=== PATIENT | male | born 2000 | race Caucasian/White ===

== ENCOUNTER 2022-07-23 14:09 | Inpatient (IN) ==
[2022-07-23 15:42] LABS: Basophils # (auto) 0.03 K/uL (0-0.2); Basophils % (auto) 0.4 %; Eosinophils # (auto) 0.09 K/uL (0-0.50); Eosinophils % (auto) 1.1 %; Immature Granulocytes # (auto) 0.02 K/uL (0.00-0.02); Immature Granulocytes % (auto) 0.2 %; Lymphocytes # (auto) 1.56 K/uL (1.2-3.4); Lymphocytes % (auto) 19.2 %; Mean Corpuscular Hgb Conc 35.6 g/dL (32.0-36.0); Mean Corpuscular Volume 84.3 fL (80.0-100.0); Mean Platelet Volume 9.5 fL (9.4-12.4); Monocytes # (auto) 0.46 K/uL (0.24-0.82); Monocytes % (auto) 5.7 %; Neutrophils # (auto) 5.96 K/uL (1.4-6.5); Neutrophils % (auto) 73.4 %; Platelet Count 225 K/uL (130-400); RDW Coefficient of Variation 11.8 % (11.5-14.5); RDW Standard Deviation 35.5 fL (36.4-46.3); Red Blood Count 5.34 M/uL (4.63-6.08); White Blood Count 8.12 K/ul (4.8-10.8)
--- NOTE | 2022-07-23 15:49 | Pulmonary Consultation ---
Date of Consultation July 23, 2022 Assessment & Plan (1) Spontaneous pneumothorax: (2) Shortness of breath: (3) Chest tightness: Plan Chest x-ray 07/23/2022 personally reviewed: Left-sided moderate pneumothorax with 4.9 cm apical separation, 1.2 cm left hilar cell separation, mild left- sided mediastinal shift -- Left-sided spontaneous pneumothorax Initial presentation 07/19/2022, was sent home with conservative management Worsening of the left-sided pneumothorax on the recent chest x-ray Plan: Will put a left-sided chest tube Risk and benefit of the procedure explained the patient in depth He understands and agrees to go ahead with the procedure. Consent signed, witnessed and put in the chart CT chest without contrast following that Please note the above document was generated using voice recognition software. It may contain grammatical, syntax or spelling errors.Any formal questions or concerns about the content, text or information contained within the body of this dictation should be directly addressed to the provider for clarification. History of Present Illness History of Present Illness 21-year-old male presents to the hospital from primary care for spontaneous pneumothorax Past medical history: Anxiety At the time of examination patient is comfortable in the room He was not in any distress he did complain of left sided chest tightness Denied any chest pain He was in the ER last Friday and he was sent home with conservative management. He has not lifted anything heavy. He denies any trauma. No headache, no nausea vomiting No history of pneumothoraces in the past Social history: Lifetime non-smoker Allergies Allergy/AdvReac Type Severity Reaction Status Date / Time No Known Allergies Allergy Unverified 07/23/22 07:02 Home Medications Medication Instructions Recorded Confirmed Type No Known Home Medications 07/23/22 07/23/22 History Patient History Medical History No pertinent family history No pertinent past medical history Surgical History No pertinent past surgical history Social History Smoking Status: Never smoker Feels Safe at Home: Yes Review of Systems Review of Systems: All systems reviewed & are unremarkable except as noted in HPI & below Physical Exam Physical Exam: Constitutional: No acute distress HEENT: EOMI, PERRLA Respiratory system: Decreased air entry in the left side, no wheeze, no rhonchi, no crackles CVS: S1-S2 positive, no murmurs or gallops, tachycardia Abdomen: Soft, nontender, nondistended, positive bowel sounds x4 Extremities: +2 pulses bilaterally radialis/ dorsalis pedis, no cyanosis, no edema Neuro: Awake alert oriented x3 Psych: Normal mood and affect G/U: No Rouse Results & Data Results & Data ([facility]) Vital Signs (Past 12 Hours) Vital Signs Temp Pulse Resp BP Pulse Ox O2 Del Method 07/23/22 14:13 36.4 C L 86 20 140/79 97 Room Air Laboratory Results 07/23/22 14:38 07/23/22 14:38 PG Care Time/CCT Total # of Minutes Spent Total Time Spent with Patient: Total time spent is greater than 50% in coordination of care (as documented) at patient's floor/unit and/or counseling patient: Coding Level of Care Code 01212 Initial Inpt Care Lvl 3 Diagnoses Spontaneous pneumothorax J93.83 Shortness of breath R06.02 Chest tightness R07.89
[2022-07-23] MEDS ORDERED: LIDOCAINE 1% LOCAL 20 ML VIAL ONE (16:11)
[2022-07-23] MEDS ORDERED: MIDAZOLAM HCL 1 MG/ML 2ML VIAL ONE ×2 (16:11→16:37)
[2022-07-23] MEDS ORDERED: MoRPHine SULFATE 2 MG/ML CARP ONE ×2 (16:11→17:47)
[2022-07-23 16:13] LABS: Albumin Level 4.7 gm/dl (3.4-5.0); BUN Creatinine Ratio 15.2 (10-20); Bilirubin,Total 1.5 mg/dl (0.2-1.0); Calcium 9.8 mg/dl (8.5-10.1); Creatinine Clr Calc Pharmacy 116.3 ml/min; Est GFR (African American) 138.3 ml/min; Est GFR (Non-African American) 119.3 ml/min; Globulin 2.4 gm/dl (2.5-4.0); Potassium 3.4 mmol/L (3.5-5.1); Total Protein 7.1 gm/dl (6.0-8.3)
--- NOTE | 2022-07-23 17:02 | Procedure Note ---
Procedure Note Date of Service July 23, 2022 Note Procedure: Pigtail chest tube insertion Software Quality Analyst: Dr. Juan Herring Indication: Left-sided pneumothorax Consent: Signed by patient and verified with timeout prior to procedure Anesthesia: 1% lidocaine without epinephrine local Procedure: Consent was verified and timeout performed. Appropriate imaging studies were reviewed prior to the procedure. Patient was placed in a seated position. Appropriate site above the diaphragm on the left midaxillary line fourth intercostal space for chest tube insertion was selected. The skin was prepped and draped in normal sterile fashion. Lidocaine was used for local analgesia. Air was aspirated via the finder needle. A small skin anamika was made with the scalpel and the catheter over the needle apparatus was advanced over the rib into the pleural space. With the help of guidewire and Seldinger technique, 14 Pashto pigtail catheter was inserted and connected to Pleur-evac. Continuous air leak was appreciated on suction for 15 seconds and is stopped. Chest x-ray to follow The patient tolerated the procedure without obvious complication Complications: None Blood loss: Less than 2 cc. Coding CPT Codes Pulmonary/Thoracic - Pulmonary and Thoracic: 26744 Tube thoracostomy ([id number]) [facility] [place]odes ([place]) Pulmonary/Thoracic Procedure 1: Pulmonary and Thoracic: 99985 Tube thoracostomy
[2022-07-23] MEDS ORDERED: ACETAMINOPHEN 1,000 MG/100 ML VIAL IV PRN (17:03)
--- NOTE | 2022-07-23 17:13 | History & Physical Report ---
Date of Service July 23, 2022 Assessment & Plan (1) Spontaneous pneumothorax: Plan: Moderate left apical pneumothorax, spontaneous Seen 07/19 for initial spontaneous pneumo, had interval improvement with nonrebreather of approximately 10% was discharged home. Presented to PCP for evaluation for some runny nose and was found to have decreased breath sounds and expanding On CXR as noted below CXR: Left apical pneumothorax. Increased compared to 07/19 with slight mass- effect along heart border without mediastinal shift. Apical pleural gap 4.9 cm from 3.1 cm. - EKG: nsr, QT 476, nonspecific T wave changes without ST segment changes Pulmonology consulted while in emergency department. Chest tube placed Follow-up CXR confirms placement Patient with significant discomfort, scaled morphine analgesia. No continuous air leak post tube placement Follow on PCU No gross baseline lab derangements on admission; No leukocytosis, hemoglobin is normal, potassium 3.4, renal function is normal at baseline and 0.19 on admission, T bili 1.5 from 2.6, no transaminitis - First episode. No ongoing airleak post chest tube placement. - Post-chest tube XR: FINDINGS: Interval placement left-sided chest tube which terminates in the left midlung zone. Decrease in size in the now small left pneumothorax with a maximal pleural gap of 1.2 cm. Mass effect along the left heart border has resolved. No mediastinal shift. No right-sided pneumothorax. No pleural effusions. The lungs are clear. Continue IV Tylenol, scaled morphine for analgesia Denies other chronic medical issues, underlying lung disease, chronic medications, medication allergies Disposition: PCU for initial monitoring after chest tube DVT prophylaxis: Low risk, SCDs Diet: Regular CODE STATUS: Full code (2) Shortness of breath: (3) Chest tightness: History of Present Illness Primary Care Provider: NO PCP Lele is a 21-year-old male presents for management of a left apical pneumothorax Patient was seen by his primary care provider this morning for follow-up of a spontaneous pneumothorax on 07/19/2022. At that time he presented to the emergency department with the onset of chest pain and was found to have a 3 cm apical pneumothorax, was treated with 100% oxygen nonrebreather with 10% improvement, was discharged home with follow-up. Patient presented for follow- up to his PCP with ear pain and a cough, had a repeat CXR for respiratory symptoms for decreased breath sounds on PE and was found to have a worsened pneumothorax to 4.9 from 3.1 cm left apex. Was referred to the hospital for chest tube management. Initially with some sinus congestions and postnasal drip, at time bedside he reports he does not have a runny nose/cough/sinus congestion/sore throat. No congestion No fevers chills sweats Pain L lateral chest @ tube site. 05/04, slightly improved following Tylenol and morphine. 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 Medical History: Reviewed Medications: Reviewed Surgical History: Reviewed Allergies: Reviewed Social History: No tobaocco or etoh Code Status: Full Code. Allergies Allergy/AdvReac Type Severity Reaction Status Date / Time No Known Allergies Allergy Unverified 07/23/22 07:02 Home Medications Medication Instructions Recorded Confirmed Type No Known Home Medications 07/23/22 07/23/22 History Past Med/Surg History Medical History No pertinent family history No pertinent past medical history Surgical History No pertinent past surgical history Social History Smoking Status: Never smoker Feels Safe at Home: Yes Review of Systems Review of Systems: All systems reviewed & are unremarkable except as noted in HPI & below Physical Exam Physical Exam: General: A&Ox3. NAD. Cooperative. HEENT: Atraumatic, normocephalic. Pulm: CTAB A&P. -wheezes, -rales, -rhonchi. Symmetrical chest rise. No increased work of breathing. No respiratory distress. Cardiac: RRR, -mrg. Radial pulses intact and symmetrical. Abdominal: Nontender, nondistended, soft. BS present. Results & Data Results & Data ([facility]) Vital Signs (Past 12 Hours) Vital Signs Temp Pulse Resp BP Pulse Ox O2 Del Method 07/23/22 14:13 36.4 C L 86 20 140/79 97 Room Air PG Care Time/CCT Total # of Minutes Spent Total Time Spent with Patient: Total time spent is greater than 50% in coordination of care (as documented) at patient's floor/unit and/or counseling patient: Coding Level of Care Code 86269 Initial Inpt Care Lvl 2 Diagnoses Spontaneous pneumothorax J93.83 Shortness of breath R06.02 Chest tightness R07.89
--- NOTE | 2022-07-23 17:22 | XRay Report ---
XR chest 1V portable HISTORY: Left chest tube placement. Follow-up pneumothorax. post thoracentesis COMPARISON: Chest 07/23/2022. FINDINGS: Interval placement left-sided chest tube which terminates in the left midlung zone. Decreas e in size in the now small left pneumothorax with a maximal pleural gap of 1.2 cm. Mass effect along the left heart border has resolved. No mediastinal shift. No right-sided pneumothorax. No pleural eff usions. The lungs are clear. IMPRESSION: Decrease in size in the now small left pneumothorax status post left chest tube placement. ACT 112: Negative or not required by law. Electronically signed by: Tomas Kay M.D. 07/23/2022 5:19 PM
[2022-07-23] MEDS ORDERED: MoRPHine SULFATE 2 MG/ML CARP IV PRN ×2 (17:38→17:49)
--- NOTE | 2022-07-23 19:19 | Emergency Department Note ---
History of Present Illness General Chief complaint: Referred by Doctor Stated complaint: ABNORMAL CHEST XRAY Time Seen by Provider: 07/23/22 15:36 History of Present Illness Provider complaint: Pneumothorax Onset (ago): day(s) 1 Maximum Pain Intensity: 8 Associated symptoms: + cough; no chest pain or no shortness of breath 21-year-old male presents emergency department with pneumothorax. Patient was here over the weekend and was diagnosed with pneumothorax. He was discharged after his pneumothorax improved with oxygen. Patient states he went to his PCP today who repeated the chest x-ray and the chest x-ray looked worse. Patient reports no chest pain or difficulty breathing. His significant other is at [facility] and states they have both been having a cough for the last 2 days. No fevers. Home Medications Medication Instructions Recorded Confirmed Type No Known Home Medications 07/23/22 07/23/22 History Allergies Allergy/AdvReac Type Severity Reaction Status Date / Time No Known Allergies Allergy Unverified 07/23/22 07:02 Past Med/Surg History Medical History No pertinent family history Spontaneous pneumothorax Surgical History No pertinent past surgical history Social History Smoking Status: Never smoker Feels Safe at Home: Yes Review of Systems A total of 10 systems reviewed and were otherwise negative Physical Exam Vital Signs Vital Signs - 24 hr 07/23/22 14:13 07/23/22 18:00 Temperature 36.4 C L Temperature Source Temporal Artery Scan Pulse Rate 86 Pulse Rate [Left Finger] 97 H Pulse Rhythm Regular Pulse Strength Normal Respiratory Rate 20 18 Respiratory Effort / Characteristics Non-Labored Spontaneous Respiratory Depth Normal Respiratory Pattern Regular Blood Pressure 140/79 Blood Pressure [Left Arm] 129/82 Blood Pressure Mean 99 Blood Pressure Mean [Left Arm] 97 Blood Pressure Position Sitting Blood Pressure Position [Left Arm] Sitting Pulse Oximetry 97 99 Oxygen Delivery Method Room Air Sepsis Recent Fever Within 48 Hours No Sepsis New/Unexplained Change in Mental Status N/A Sepsis Action Taken by Nursing No Action Required Physical Exam GENERAL: He is oriented to person, place, and time. He appears well-developed and well-nourished. He does not appear distressed. HENT: Exam performed. - Head: Normocephalic and atraumatic. - Right Ear: External ear normal. No mastoid tenderness. - Left Ear: External ear normal. No mastoid tenderness. - Mouth/Throat: The oropharynx is clear and moist. No trismus in the jaw. No dental abscesses or uvula swelling. No oropharyngeal exudate or tonsillar abscesses. EYES: Conjunctivae and EOM are normal. Pupils are equal, round, and reactive to light. Right eye exhibits no discharge. Left eye exhibits no discharge. No scleral icterus. NECK: Normal range of motion. Neck supple. No JVD present. No spinous process tenderness present. No carotid bruit present. No rigidity. No tracheal deviation and normal range of motion present. No Brudzinski's sign and no Kernig's sign noted. CV: Normal rate, regular rhythm, normal heart sounds and intact distal pulses. There is no peripheral edema. Palpable radial pulses bue. PULM/CHEST: Effort normal and breath sounds normal. No respiratory distress. No stridor. He has no wheezes. He has no rales. - Chest Wall: He exhibits no tenderness. ABD: The abdomen is soft. Bowel sounds are normal. He has no distension. No mass is present. There is no tenderness. There is no rebound, no guarding, no Villarreal's sign and no tenderness at McBurney's point. Rovsig negative. MUSC/SKEL: Normal range of motion. There is no peripheral edema, tenderness or deformity. LYMPH: No cervical adenopathy. NEURO: He is alert and oriented to person, place, and time. He has normal strength. No cranial nerve deficit or sensory deficit. Coordination and gait normal. GCS eye subscore is 4. GCS verbal subscore is 5. GCS motor subscore is 6. Cerebellar tests wnl. SKIN: Skin is warm and dry. He is not diaphoretic. PSYCH: He has a normal mood and affect. Behavior is normal. Judgment and thought content normal. Course Course 1535: The patient was evaluated in room B10. A complete history and physical exam was performed Administered Medications Acetaminophen (Ofirmev) 1,000 mg in 100 mls @ 400 mls/hr IV Q8H PRN PRN Reason: Pain Stop: 07/26/22 17:02 Last Infusion: 07/23/22 18:10 Dose: 0 mls/hr Documented By: [id number] Admin: 07/23/22 17:51 Dose: 400 mls/hr Documented By: ISIDRA Morphine Sulfate (Morphine Sulfate 2 Mg/Ml Carp) 2 mg IV Q4H PRN PRN Reason: Severe Pain (7,8,9,10) on NRS Stop: 08/06/22 17:48 Last Admin: 07/23/22 18:51 Dose: 2 mg Documented By: [id number] Discontinued Medications Lidocaine HCl (Lidocaine 1% Local 20 Ml Vial) Confirm Administered Dose 20 ml .ROUTE .STK-MED ONE Stop: 07/23/22 16:12 Last Admin: 07/23/22 17:13 Dose: 20 ml Documented By: [id number] Midazolam HCl (Midazolam Hcl 1 Mg/Ml 2ml Vial) Confirm Administered Dose 4 mg .ROUTE .STK-MED ONE Stop: 07/23/22 16:12 Last Increment: 07/23/22 17:13 Dose: 3 mg Documented By: [id number] Midazolam HCl (Midazolam Hcl 1 Mg/Ml 2ml Vial) Confirm Administered Dose 2 mg .ROUTE .STK-MED ONE Stop: 07/23/22 16:38 Last Admin: 07/23/22 18:13 Dose: Not Given Documented By: [id number] Morphine Sulfate (Morphine Sulfate 2 Mg/Ml Carp) Confirm Administered Dose 2 mg .ROUTE .STK-MED ONE Stop: 07/23/22 16:12 Last Admin: 07/23/22 17:13 Dose: 2 mg Documented By: [id number] Morphine Sulfate (Morphine Sulfate 2 Mg/Ml Carp) Confirm Administered Dose 2 mg .ROUTE .STK-MED ONE Stop: 07/23/22 17:48 Last Admin: 07/23/22 17:51 Dose: 2 mg Documented By: ISIDRA Medical Decision Making Laboratory Data Result diagrams: 07/23/22 14:38 07/23/22 14:38 Lab Results 07/23/22 07/23/22 Range/Units 14:38 14:38 WBC 8.12 (4.8-10.8) K/ul RBC 5.34 (4.63-6.08) M/uL Hgb 16.0 (14.0-18.0) g/dl Hct 45.0 (40.1-51.0) % MCV 84.3 (80.0-100.0) fL MCH 30.0 (25.0-34.0) pg MCHC 35.6 (32.0-36.0) g/dL RDW Std Deviation 35.5 L (36.4-46.3) fL RDW Coeff of Jarett 11.8 (11.5-14.5) % Plt Count 225 (130-400) K/uL MPV 9.5 (9.4-12.4) fL Immature Gran % (Auto) 0.2 % Neut % (Auto) 73.4 % Lymph % (Auto) 19.2 % [place] % (Auto) 5.7 % Eos % (Auto) 1.1 % Baso % (Auto) 0.4 % Neut # (Auto) 5.96 (1.4-6.5) K/uL Lymph # (Auto) 1.56 (1.2-3.4) K/uL [place] # (Auto) 0.46 (0.24-0.82) K/uL Eos # (Auto) 0.09 (0-0.50) K/uL Baso # (Auto) 0.03 (0-0.2) K/uL Immature Gran # (Auto) 0.02 (0.00-0.02) K/uL Sodium 142 (136-145) mmol/L Potassium 3.4 L (3.5-5.1) mmol/L Chloride 106 (98-107) mmol/L Carbon Dioxide 29 (21-32) mmol/L Anion Gap 7 (3-11) BUN 14 (6-23) mg/dl Creatinine 0.92 (0.6-1.4) mg/dl Est Cr Clr Drug Dosing 116.3 ml/min Est GFR ( Amer) 138.3 ml/min Est GFR (Non-Af Amer) 119.3 ml/min BUN/Creatinine Ratio 15.2 (10-20) Glucose 121 H (70-99(Fasting)) mg/dl Calcium 9.8 (8.5-10.1) mg/dl Total Bilirubin 1.5 H (0.2-1.0) mg/dl AST 10 L (13-39) U/L ALT 13 (7-52) U/L Alkaline Phosphatase 58 (34-104) U/L Total Protein 7.1 (6.0-8.3) gm/dl Albumin 4.7 (3.4-5.0) gm/dl Globulin 2.4 L (2.5-4.0) gm/dl Albumin/Globulin Ratio 2.0 (0.9-2) Imaging Data Radiologist's Impression: Chest X-Ray 07/23/22 16:51 XR chest 1V portable HISTORY: Left chest tube placement. Follow-up pneumothorax. post thoracentesis COMPARISON: Chest 07/23/2022. FINDINGS: Interval placement left-sided chest tube which terminates in the left midlung zone. Decrease in size in the now small left pneumothorax with a maximal pleural gap of 1.2 cm. Mass effect along the left heart border has resolved. No mediastinal shift. No right-sided pneumothorax. No pleural effusions. The lungs are clear. IMPRESSION: Decrease in size in the now small left pneumothorax status post left chest tube placement. ACT 112: Negative or not required by law. Electronically signed by: Tomas Kay M.D. 07/23/2022 5:19 PM MDM Narrative Cardiac monitoring: An order was placed for continuous cardiac monitoring. The monitor shows a rate of 90 with sinus rhythm EMR reviewed. Patient was seen over the weekend and was seen for spontaneous pneumothorax which did improved with oxygen via the nonrebreather. Patient had an x-ray done outpatient today which showed increased size of the left-sided pneumothorax. X-ray does report possibility of tension developing. Clinically the patient has absolutely zero signs of tension pneumothorax. There is no JVD, he is not reporting chest pain, breath sounds are present, there is no hypotension. Discussed the case with pulmonology on-call Dr. Herring who graciously agreed to come and evaluate the patient and kindly placed a pigtail catheter in the patient. See his procedure note. [facility] the patient Impression & Plan Pneumothorax Discharge Plan Visit Data Chief Complaint: Referred by Doctor Stated Complaint: ABNORMAL CHEST XRAY ED Provider: Zhou Salas Discharge Problem: Pneumothorax Patient Disposition: Admitted As Inpatient Forms Stand Alone Forms: My [facility] Prescriptions Prescriptions: No Action No Known Home Medications Referrals Referrals: PCP,NO [Primary Care Provider] -
[2022-07-23 19:31] LABS: Appearance Urine Clear (Clear); Bilirubin Urine Negative (Negative); Blood Urine Negative (Negative); Color Urine Yellow; Glucose Urine UA Negative (Negative); Ketones Urine Trace (Negative); Leukocyte Esterase Urine Negative (Negative); Nitrite Urine Negative (Negative); Protein Urine Negative (Negative); Specific Gravity Urine 1.018 (1.000-1.030); Urobilinogen Urine Negative (Negative); pH Urine 6.5 (4.5-7.5)
--- NOTE | 2022-07-23 19:38 | Electrocardiogram Report ---
Test Reason : Blood Pressure : / mmHG Vent. Rate : 087 BPM Atrial Rate : 087 BPM P-R Int : 142 ms QRS Dur : 088 ms QT Int : 396 ms P-R-T Axes : 072 082 046 degrees QTc Int : 476 ms Normal sinus rhythm Nonspecific T wave abnormality Prolonged QT Abnormal ECG When compared with ECG of 19-JUL-2022 09:37, Nonspecific T wave abnormality, worse in Inferior leads Nonspecific T wave abnormality now evident in Anterolateral leads Confirmed by Shen Parks ([id number]) on 07/23/2022 7:38:29 PM Referred By: Confirmed By:Lencho Parks
[2022-07-23] MEDS ORDERED: ACETAMINOPHEN 325 MG TAB PO PRN (20:06)
[2022-07-23] MEDS ORDERED: ONDANSETRON INJ 2 MG/ML 2 ML VIAL IV STA (20:27)
[2022-07-23] MEDS ORDERED: ONDANSETRON INJ 2 MG/ML 2 ML VIAL ONE (20:30)
[2022-07-23] MEDS ORDERED: HYDROmorphone INJ 0.5 MG/0.5 ML SYR IV STA (23:28)
--- NOTE | 2022-07-24 04:01 | Communication Note ---
Date of Service: July 24, 2022 Was in frequent contact with patient's RN throughout the night due to patient's persistent pain. While the morphine doses (1, 2mg) helped somewhat, they made him very nauseous and uneasy. Responded to Zofran. Did trial a one-time dose of Dilaudid 0.5mg with better response and without nausea - was able to get to sleep shortly thereafter. Given this, will change pain scale medications from Morphine -> Dilaudid 0.25mg (pain 4,5,6) and Dilaudid 0.5mg (pain 7+). Monitor. Resident Activity Tracking Resident Involvement: Resident Care Provided Care Provided: Adult Hospital Medicine
[2022-07-24] MEDS: HYDROmorphone INJ 0.5 MG/0.5 ML SYR IV PRN ×4 (04:05→16:48)
[2022-07-24 06:56] LABS: Basophils # (auto) 0.03 K/uL (0-0.2); Basophils % (auto) 0.3 %; Eosinophils # (auto) 0.04 K/uL (0-0.50); Eosinophils % (auto) 0.4 %; Hemoglobin 15.2 g/dl (14.0-18.0); Immature Granulocytes # (auto) 0.02 K/uL (0.00-0.02); Immature Granulocytes % (auto) 0.2 %; Lymphocytes # (auto) 1.18 K/uL (1.2-3.4); Lymphocytes % (auto) 13.3 %; Mean Corpuscular Hemoglobin 30.3 pg (25.0-34.0); Mean Corpuscular Hgb Conc 35.3 g/dL (32.0-36.0); Mean Corpuscular Volume 85.7 fL (80.0-100.0); Mean Platelet Volume 9.2 fL (9.4-12.4); Monocytes # (auto) 0.61 K/uL (0.24-0.82); Monocytes % (auto) 6.9 %; Neutrophils # (auto) 7.01 K/uL (1.4-6.5); Neutrophils % (auto) 78.9 %; Platelet Count 210 K/uL (130-400); RDW Coefficient of Variation 11.6 % (11.5-14.5); Red Blood Count 5.02 M/uL (4.63-6.08); White Blood Count 8.89 K/ul (4.8-10.8)
--- NOTE | 2022-07-24 07:31 | Pulmonology Progress Note ---
Date of Service July 24, 2022 Assessment & Plan (1) Spontaneous pneumothorax: (2) Shortness of breath: (3) Chest tightness: Plan Chest x-ray 07/23/2022 personally reviewed: Left-sided moderate pneumothorax with 4.9 cm apical separation, 1.2 cm left hilar cell separation, mild left- sided mediastinal shift CT chest 07/24/2022 personally reviewed: Bilateral apical blebs appreciated, small left-sided pneumothorax No mediastinal lymphadenopathy -- Left-sided spontaneous pneumothorax Initial presentation 07/19/2022, was sent home with conservative management Worsening of the left-sided pneumothorax on the recent chest x-ray S/p pigtail catheter 07/23/2022 Plan: I put the patient on suction -20. Initial bubbling was appreciated with lasted for less than 3 seconds. Will repeat chest x-ray tomorrow. Continue with pain management All question inquiries of the patient's family as well as patient were answered in depth Please note the above document was generated using voice recognition software. It may contain grammatical, syntax or spelling errors.Any formal questions or concerns about the content, text or information contained within the body of this dictation should be directly addressed to the provider for clarification. Admission and Anticipated Discharge Date Admission Date: July 23, 2022 Subjective Patient seen and examined at bedside. No acute distress, no adverse events overnight. Chest pain is better controlled. He has been getting pain medication as needed Denies any nausea vomiting No headache, no blurry vision Fair appetite Patient family was also at bedside at the time of examination Review of Systems Review of Systems: All systems reviewed & are unremarkable except as noted in Subjective Physical Exam Physical Exam: Constitutional: No acute distress HEENT: EOMI, PERRLA Respiratory system: Decreased air entry in the left side, no wheeze, no rhonchi, no crackles CVS: S1-S2 positive, no murmurs or gallops Abdomen: Soft, nontender, nondistended, positive bowel sounds x4 Extremities: +2 pulses bilaterally radialis/ dorsalis pedis, no cyanosis, no edema Neuro: Awake alert oriented x3 Psych: Normal mood and affect G/U: No Rouse Skin: no rashes, warm and dry Lymphatic: no cervical or axillary lymphadenopathy Results & Data Results & Data ([facility] [place]) Vital Signs (Past 12 Hours) Vital Signs Temp Pulse Pulse Resp BP BP Pulse Ox 07/24/22 07:14 36.7 C 93 H 20 132/78 98 07/24/22 03:24 36.9 C 100 H 18 132/75 97 07/23/22 22:18 72 07/23/22 20:07 104 H 07/23/22 23:05 36.8 C 103 H 18 139/78 98 07/23/22 20:06 36.9 C 103 H 18 150/78 H 99 07/23/22 20:06 07/23/22 20:00 07/23/22 20:00 36.9 C 103 H 18 150/78 H 99 Pulse Ox O2 Del Method O2 Del Method 07/24/22 07:14 Room Air 07/24/22 03:24 Room Air 07/23/22 22:18 07/23/22 20:07 07/23/22 23:05 Room Air 07/23/22 20:06 Room Air 07/23/22 20:06 99 Room Air 07/23/22 20:00 Room Air 07/23/22 20:00 Room Air Laboratory Results 07/24/22 06:29 PG Care Time/CCT Total # of Minutes Spent Total Time Spent with Patient: Total time spent is greater than 50% in coordination of care (as documented) at patient's floor/unit and/or counseling patient: Coding Level of Care Code 51242 Subseq Hosp Care Lvl 2 Diagnoses Spontaneous pneumothorax J93.83 Shortness of breath R06.02 Chest tightness R07.89
[2022-07-24 07:34] LABS: BUN Creatinine Ratio 12.4 (10-20); Calcium 9.2 mg/dl (8.5-10.1); Est GFR (African American) 142.7 ml/min; Est GFR (Non-African American) 123.1 ml/min; Potassium 3.6 mmol/L (3.5-5.1)
--- NOTE | 2022-07-24 09:20 | Hospitalist Progress Note ---
Date of Service July 24, 2022 Assessment & Plan (1) Spontaneous pneumothorax: Plan: Presented on 07/19 for initial spontaneous pneumothorax, improved with nonrebreather and was discharged home. Had decreased breath sounds and had chest x-ray that showed left apical pneumothorax increased compared to 07/19. Pulmonology consulted and appreciate recommendations; chest tube placed. Suction was started today due to no improvement in pneumothorax on CT imaging. Pain control with Tylenol 1000 mg every 8 hours scheduled, with Dilaudid as needed for severe or breakthrough pain with parameters. Telemetry for cardiac monitoring. (2) Chest tightness: Plan: Secondary to #1, still with some pain but mostly at the site of the tube rather than the chest tightness that he presented with. (3) Shortness of breath: Plan: Secondary to #1, resolved Plan Full code Regular diet Low risk of DVT Telemetry status Admission and Anticipated Discharge Date Admission Date: July 23, 2022 Subjective Patient with pain this morning with deep breaths, trying to take shallow breaths to offset the pain and also trying not to move his left arm due to the pain. Pain is alleviated with Dilaudid but comes back. No trouble breathing. Review of Systems Review of Systems: All systems reviewed & are unremarkable except as noted in Subjective Physical Exam Constitutional: WD/WN, vitals as above Respiratory: Shallow breathing due to pain, decreased air entry on left side, right lung clear to auscultation Cardiovascular: RRR, no murmur, no edema Gastrointestinal (Abdomen): normal bowel sounds, soft, nontender, no hepatosplenomegaly Skin: no rashes, warm and dry Psychiatric: A+Ox3, euthymic affect Results & Data Results & Data ([facility]) Vital Signs (Past 12 Hours) Vital Signs Temp Pulse Pulse Resp BP Pulse Ox O2 Del Method 07/24/22 07:14 36.7 C 93 H 20 132/78 98 Room Air 07/24/22 03:24 36.9 C 100 H 18 132/75 97 Room Air 07/23/22 22:18 72 07/23/22 23:05 36.8 C 103 H 18 139/78 98 Room Air PG Care Time/CCT Total # of Minutes Spent Total Time Spent with Patient: Total time spent is greater than 50% in coordination of care (as documented) at patient's floor/unit and/or counseling patient: Coding Level of Care Code 67588 Subseq Hosp Care Lvl 2 Diagnoses Spontaneous pneumothorax J93.83 Chest tightness R07.89 Shortness of breath R06.02
[2022-07-24] MEDS ORDERED: ONDANSETRON INJ 2 MG/ML 2 ML VIAL IV PRN (09:26)
[2022-07-24] MEDS ORDERED: ONDANSETRON INJ 2 MG/ML 2 ML VIAL ONE (09:38)
--- NOTE | 2022-07-24 09:54 | CT Scan Report ---
CT SCAN OF THE CHEST WITHOUT IV CONTRAST CLINICAL HISTORY: Pneumothorax. COMPARISON STUDY: Chest x-ray dated 07/24/2022. TECHNIQUE: CT scan of the thorax was performed from the thoracic inlet to the upper abdomen. Images are reviewed in the axial, sagittal, and coronal planes. IV contrast was not administered for this ex amination as per the referring clinician. A dose lowering technique was utilized adhering to the ricarda nciples of DOMINIC. The examination is degraded by streak artifact from the left arm which could not be elevated above the chest. CT DOSE: 287.62 mGy.cm FINDINGS: Thyroid: Imaged portions of the thyroid gland are normal in size and attenuation. Thoracic aorta: The thoracic aorta is normal in caliber and demonstrates standard 3-vessel arch anato my. Heart: The heart is normal in size and without pericardial effusion. Lungs and pleural spaces: A left-sided chest tube is in place. This enters between the anterior 4th a nd 5th ribs, with the tip coiled along the anterior pleural surface in the upper chest. There is trac e residual left apical and basilar pneumothorax. There is trace left pleural effusion with dependent atelectasis. The right lung appears clear. The trachea and central airways are patent. Question a rup tured bleb at the left apex on axial image #44. No blebs are clearly seen at the right apex. Mediastinum: Residual thymic tissue is seen anteriorly. There is no mediastinal lymphadenopathy. Frieda: Not well assessed without IV contrast. Axillae: There is no axillary lymphadenopathy. Upper abdomen: Partially visualized upper abdominal viscera is within normal limits. Skeletal structures: No lytic or blastic bony lesions are seen. IMPRESSION: 1. A left-sided chest tube is in place as above. 2. There is trace residual left apical and basilar pneumothorax. 3. Trace left pleural effusion. 4. Question a small ruptured bleb at the left apex. 5. Additional findings as above. ACT 112: Negative or not required by law. Electronically signed by: John Ingram M.D. 07/24/2022 9:52 AM
--- NOTE | 2022-07-24 10:09 | XRay Report ---
SINGLE VIEW CHEST CLINICAL HISTORY: Follow-up pneumothorax. FINDINGS: 2 AP, portable, upright chest radiographs compared to study dated 07/23/2022. The cardiomed iastinal silhouette is unremarkable. A left-sided chest tube is unchanged in position. There is a sma [id number] residual left apical pneumothorax with approximately 2 cm of pleural separation. No ai rspace consolidation or large pleural effusion is identified. The bony thorax is grossly intact. IMPRESSION: 1. There is a [id number] residual left apical pneumothorax. This has modestly increased in siz e as compared to yesterday. 2. A left-sided chest tube is unchanged in position. ACT 112: Negative or not required by law. Electronically signed by: John Ingram M.D. 07/24/2022 10:08 AM
[2022-07-24] MEDS: ACETAMINOPHEN 1,000 MG/100 ML VIAL IV SCH ×2 (11:19→19:18)
[2022-07-25] MEDS: HYDROmorphone INJ 0.5 MG/0.5 ML SYR IV PRN ×4 (02:27→22:05)
[2022-07-25 06:10] LABS: Basophils # (auto) 0.03 K/uL (0-0.2); Basophils % (auto) 0.4 %; Eosinophils # (auto) 0.15 K/uL (0-0.50); Eosinophils % (auto) 2.2 %; Hematocrit (blood only) 47.3 % (40.1-51.0); Hemoglobin 16.6 g/dl (14.0-18.0); Immature Granulocytes # (auto) 0.08 K/uL (0.00-0.02); Immature Granulocytes % (auto) 1.2 %; Lymphocytes # (auto) 1.68 K/uL (1.2-3.4); Lymphocytes % (auto) 24.5 %; Mean Corpuscular Hemoglobin 30.3 pg (25.0-34.0); Mean Corpuscular Hgb Conc 35.1 g/dL (32.0-36.0); Mean Corpuscular Volume 86.5 fL (80.0-100.0); Mean Platelet Volume 9.2 fL (9.4-12.4); Monocytes # (auto) 0.49 K/uL (0.24-0.82); Monocytes % (auto) 7.1 %; Neutrophils # (auto) 4.43 K/uL (1.4-6.5); Neutrophils % (auto) 64.6 %; Platelet Count 216 K/uL (130-400); RDW Coefficient of Variation 11.7 % (11.5-14.5); RDW Standard Deviation 37.1 fL (36.4-46.3); Red Blood Count 5.47 M/uL (4.63-6.08); White Blood Count 6.86 K/ul (4.8-10.8)
[2022-07-25] MEDS: ACETAMINOPHEN 1,000 MG/100 ML VIAL IV SCH ×3 (06:11→19:15)
--- NOTE | 2022-07-25 08:10 | Pulmonology Progress Note ---
Date of Service July 25, 2022 Assessment & Plan (1) Spontaneous pneumothorax: (2) Shortness of breath: (3) Chest tightness: Plan Chest x-ray 07/23/2022 personally reviewed: Left-sided moderate pneumothorax with 4.9 cm apical separation, 1.2 cm left hilar cell separation, mild left- sided mediastinal shift CT chest 07/24/2022 personally reviewed: Bilateral apical blebs appreciated, small left-sided pneumothorax No mediastinal lymphadenopathy -- Left-sided spontaneous pneumothorax Initial presentation 07/19/2022, was sent home with conservative management Worsening of the left-sided pneumothorax on the recent chest x-ray S/p pigtail catheter 07/23/2022 Plan: Chest x-ray from today shows decrease in the size of left apical pneumothorax. I increased the suction to -40. Initial bubbling was appreciated which resolved in less than 5 seconds. Repeat chest x-ray tomorrow Please note the above document was generated using voice recognition software. It may contain grammatical, syntax or spelling errors.Any formal questions or concerns about the content, text or information contained within the body of this dictation should be directly addressed to the provider for clarification. Admission and Anticipated Discharge Date Admission Date: July 23, 2022 Subjective Patient seen and examined at bedside. No acute distress, no adverse events overnight Chest pain at the site of chest tube has significantly improved. Breathing is better. He does have discomfort when he takes deep breath in. No nausea or vomiting Fair appetite. Passing gas but no bowel movement Review of Systems Review of Systems: All systems reviewed & are unremarkable except as noted in Subjective Physical Exam Physical Exam: Constitutional: No acute distress HEENT: EOMI, PERRLA, no crepitus Respiratory system: Decreased air entry in the left side, no wheeze, no rhonchi, no crackles CVS: S1-S2 positive, no murmurs or gallops Abdomen: Soft, nontender, nondistended, positive bowel sounds x4 Extremities: +2 pulses bilaterally radialis/ dorsalis pedis, no cyanosis, no edema Neuro: Awake alert oriented x3 Psych: Normal mood and affect G/U: No Rouse Skin: no rashes, warm and dry Lymphatic: no cervical or axillary lymphadenopathy Results & Data Results & Data ([facility]) Vital Signs (Past 12 Hours) Vital Signs Temp Pulse Pulse Resp BP Pulse Ox O2 Del Method 07/25/22 07:40 65 07/25/22 07:20 36.9 C 85 20 121/74 97 Room Air 07/25/22 02:41 36.8 C 96 H 17 125/85 95 Room Air 07/24/22 21:59 80 07/24/22 22:35 36.5 C 71 20 120/77 97 Room Air Laboratory Results 07/25/22 05:26 07/24/22 06:29 PG Care Time/CCT Total # of Minutes Spent Total Time Spent with Patient: Total time spent is greater than 50% in coordination of care (as documented) at patient's floor/unit and/or counseling patient: Coding Level of Care Code 83465 Subseq Hosp Care Lvl 2 Diagnoses Spontaneous pneumothorax J93.83 Shortness of breath R06.02 Chest tightness R07.89
--- NOTE | 2022-07-25 09:29 | Hospitalist Progress Note ---
Date of Service July 25, 2022 Assessment & Plan (1) Spontaneous pneumothorax: Plan: Presented on 07/19 for initial spontaneous pneumothorax, improved with nonrebreather and was discharged home. Had decreased breath sounds and had chest x-ray that showed left apical pneumothorax increased compared to 07/19. Pulmonology consulted and appreciate recommendations; chest tube to suction placed. CXR with improvement in pneumothorax. Pain control with Tylenol 1000 mg every 8 hours scheduled, with Dilaudid as needed for severe or breakthrough pain with parameters. Telemetry for cardiac monitoring. (2) Chest tightness: Plan: Secondary to #1, still with some pain but mostly at the site of the tube rather than the chest tightness that he presented with. (3) Shortness of breath: Plan: Secondary to #1, resolved (4) Constipation: Plan: Senokot daily for constipation. Plan Full code Regular diet Low risk of DVT Telemetry status Admission and Anticipated Discharge Date Admission Date: July 23, 2022 Subjective Overnight: No acute events overnight. Normal vital signs, saturating well on room air. Complaints of pain with deep breathing, however not as bad as yesterday, feels the tylenol is helping a lot. Has not had a BM since arrival to hospital. Review of Systems Review of Systems: All systems reviewed & are unremarkable except as noted in Subjective Physical Exam Constitutional: WD/WN, vitals as above Cardiovascular: RRR, no murmur, no edema Gastrointestinal (Abdomen): normal bowel sounds, soft, nontender, no hepatosplenomegaly Skin: no rashes, warm and dry Psychiatric: A+Ox3, euthymic affect Results & Data Results & Data ([facility]) Vital Signs (Past 12 Hours) Vital Signs Temp Pulse Pulse Resp BP Pulse Ox O2 Del Method 07/25/22 07:40 65 07/25/22 07:20 36.9 C 85 20 121/74 97 Room Air 07/25/22 02:41 36.8 C 96 H 17 125/85 95 Room Air 07/24/22 21:59 80 07/24/22 22:35 36.5 C 71 20 120/77 97 Room Air PG Care Time/CCT Total # of Minutes Spent Total Time Spent with Patient: Total time spent is greater than 50% in coordination of care (as documented) at patient's floor/unit and/or counseling patient: Coding Level of Care Code 62839 Subseq Hosp Care Lvl 2 Diagnoses Spontaneous pneumothorax J93.83 Chest tightness R07.89 Shortness of breath R06.02 Constipation K59.00
--- NOTE | 2022-07-25 09:44 | XRay Report ---
XR chest 1V portable CLINICAL HISTORY: f/u COMPARISON STUDY: Chest radiograph and chest CT July 24, 2022. FINDINGS: Left pleural catheter is in place. There is a small left apical pneumothorax with pleural s eparation of 1.9 cm. This has slightly decreased since prior chest radiograph. No right pneumothorax is present. Cardiac size is normal. Mediastinal contours are normal. There is no consolidation. IMPRESSION: Left pleural catheter in place. Slight decrease in size of a small left apical pneumotho rax. ACT 112: Negative or not required by law. Electronically signed by: David Roy M.D. 07/25/2022 9:43 AM
[2022-07-25] MEDS: DOCUSATE SODIUM/SENNA 50/8.6MG TAB PO SCH (14:31)
[2022-07-26] MEDS: ACETAMINOPHEN 1,000 MG/100 ML VIAL IV SCH ×3 (03:57→19:12)
[2022-07-26 06:07] LABS: Basophils # (auto) 0.03 K/uL (0-0.2); Basophils % (auto) 0.4 %; Eosinophils % (auto) 2.4 %; Hematocrit (blood only) 46.1 % (40.1-51.0); Hemoglobin 16.3 g/dl (14.0-18.0); Immature Granulocytes # (auto) 0.03 K/uL (0.00-0.02); Immature Granulocytes % (auto) 0.4 %; Lymphocytes # (auto) 1.42 K/uL (1.2-3.4); Mean Corpuscular Hgb Conc 35.4 g/dL (32.0-36.0); Mean Corpuscular Volume 84.9 fL (80.0-100.0); Mean Platelet Volume 8.9 fL (9.4-12.4); Monocytes # (auto) 0.59 K/uL (0.24-0.82); Monocytes % (auto) 7.1 %; Neutrophils # (auto) 6.08 K/uL (1.4-6.5); Neutrophils % (auto) 72.7 %; Platelet Count 209 K/uL (130-400); RDW Coefficient of Variation 11.6 % (11.5-14.5); RDW Standard Deviation 35.2 fL (36.4-46.3); Red Blood Count 5.43 M/uL (4.63-6.08); White Blood Count 8.35 K/ul (4.8-10.8)
[2022-07-26 06:26] LABS: BUN Creatinine Ratio 22.4 (10-20); Calcium 9.4 mg/dl (8.5-10.1); Creatinine Clr Calc Pharmacy 105.8 ml/min; Est GFR (African American) 128.1 ml/min; Est GFR (Non-African American) 110.5 ml/min; Potassium 3.8 mmol/L (3.5-5.1)
[2022-07-26] MEDS: HYDROmorphone INJ 0.5 MG/0.5 ML SYR IV PRN ×2 (06:44→14:32)
--- NOTE | 2022-07-26 07:33 | XRay Report ---
XR chest 1V portable HISTORY: 21 years-old Male f/u follow-up study in a patient with left-sided pneumothorax COMPARISON: Chest radiograph 07/25/2022 TECHNIQUE: Portable AP view of the chest FINDINGS: Cardiomediastinal and hilar silhouettes are within normal limits. Left-sided pleural drainage cathete r projecting over the left midlung is again noted. Left-sided pneumothorax with pleural separation of 2.2 cm, previously 1.9 cm. The right lung is clear. No pleural effusion or airspace consolidation. U pper thoracic levoscoliosis again noted. IMPRESSION: Stable positioning of the left-sided pleural catheter with generally unchanged left apica l pneumothorax. ACT 112: Negative or not required by law. The above report was generated using voice recognition software. It may contain grammatical, syntax o r spelling errors. Electronically signed by: Galen Clay M.D. 07/26/2022 7:31 AM
[2022-07-26] MEDS: DOCUSATE SODIUM/SENNA 50/8.6MG TAB PO SCH (08:40)
--- NOTE | 2022-07-26 09:48 | Hospitalist Progress Note ---
Date of Service July 26, 2022 Assessment & Plan (1) Spontaneous pneumothorax: Plan: Presented on 07/19 for initial spontaneous pneumothorax, improved with nonrebreather and was discharged home. Had decreased breath sounds and had chest x-ray that showed left apical pneumothorax increased compared to 07/19. Pulmonology consulted and appreciate recommendations; chest tube to suction placed. Unfortunately CXR while the patient was on waterseal showed worsening of left-sided pneumothorax, therefore placed back to suction. Given the patient has been requiring continuous suction for more than 48 hours, will be transferred to [facility] for possible VATS once bed available. Pain control with Tylenol 1000 mg every 8 hours scheduled, with Toradol and Dilaudid as needed for severe or breakthrough pain. Telemetry for cardiac monitoring. (2) Chest tightness: Plan: Secondary to #1, still with some pain but mostly at the site of the tube rather than the chest tightness that he presented with. (3) Shortness of breath: Plan: Secondary to #1, resolved (4) Constipation: Plan: Senokot daily for constipation due to opiate pain medications. Had BM today. Plan Full code Regular diet Low risk of DVT, ambulate on demand Telemetry status Admission and Anticipated Discharge Date Admission Date: July 23, 2022 Subjective No acute events overnight. Today patient was moving in the room a bit more and was having more pain so Toradol was added with good relief. He denies SOB at th is time. Has left chest wall pain at the site of the chest tube. Had a BM today. No other complaints. Review of Systems Review of Systems: All systems reviewed & are unremarkable except as noted in Subjective Physical Exam Physical Exam: chest tube in place to continuous suction Constitutional: WD/WN, vitals as above Cardiovascular: RRR, no murmur, no edema Gastrointestinal (Abdomen): normal bowel sounds, soft, nontender, no hepatosplenomegaly Skin: no rashes, warm and dry Psychiatric: A+Ox3, euthymic affect Results & Data Results & Data ([facility]) Vital Signs (Past 12 Hours) Vital Signs Temp Pulse Pulse Resp BP Pulse Ox O2 Del Method 07/26/22 08:30 37.1 C 76 17 110/64 98 Room Air 07/26/22 04:14 36.6 C 70 16 103/65 96 Room Air 07/25/22 22:30 75 07/25/22 23:29 36.8 C 66 18 107/68 97 Room Air PG Care Time/CCT Total # of Minutes Spent Total Time Spent with Patient: Total time spent is greater than 50% in coordination of care (as documented) at patient's floor/unit and/or counseling patient: Coding Level of Care Code 38671 Subseq Hosp Care Lvl 2 Diagnoses Spontaneous pneumothorax J93.83 Chest tightness R07.89 Shortness of breath R06.02 Constipation K59.00
[2022-07-26] MEDS: KETOROLAC 30 MG/ML VIAL IV PRN ×2 (09:49→21:01)
--- NOTE | 2022-07-26 12:12 | Pulmonology Progress Note ---
Date of Service July 26, 2022 Assessment & Plan (1) Spontaneous pneumothorax: (2) Shortness of breath: (3) Chest tightness: Plan Chest x-ray 07/23/2022 personally reviewed: Left-sided moderate pneumothorax with 4.9 cm apical separation, 1.2 cm left hilar cell separation, mild left- sided mediastinal shift CT chest 07/24/2022 personally reviewed: Bilateral apical blebs appreciated, small left-sided pneumothorax No mediastinal lymphadenopathy -- Left-sided spontaneous pneumothorax Initial presentation 07/19/2022, was sent home with conservative management Worsening of the left-sided pneumothorax on the recent chest x-ray S/p pigtail catheter 07/23/2022 Plan: Chest x-ray from today does not show any significant change compared to yesterday. Small left apical pneumothorax will persist Chest tube was to -40 suction, no air leak was appreciated. I will take the patient off suction and repeat a chest x-ray around 3 PM to see if there is any increase in size. If there is increase in size when I take the patient off suction then I will consider sending the patient for VATS. Please note the above document was generated using voice recognition software. It may contain grammatical, syntax or spelling errors.Any formal questions or concerns about the content, text or information contained within the body of this dictation should be directly addressed to the provider for clarification. Admission and Anticipated Discharge Date Admission Date: July 23, 2022 Subjective Patient seen and examined at bedside. No acute distress. No adverse events overnight Mild left-sided discomfort at the site of the chest tube still persists. Denies any headache, no nausea, no vomiting Fair appetite. Review of Systems Review of Systems: All systems reviewed & are unremarkable except as noted in Subjective Physical Exam Physical Exam: Constitutional: No acute distress HEENT: EOMI, PERRLA, no crepitus Respiratory system: Decreased air entry in the left side, no wheeze, no rhonchi, no crackles CVS: S1-S2 positive, no murmurs or gallops Abdomen: Soft, nontender, nondistended, positive bowel sounds x4 Extremities: +2 pulses bilaterally radialis/ dorsalis pedis, no cyanosis, no edema Neuro: Awake alert oriented x3 Psych: Normal mood and affect G/U: No Rouse Skin: no rashes, warm and dry Lymphatic: no cervical or axillary lymphadenopathy Results & Data Results & Data ([facility]) Vital Signs (Past 12 Hours) Vital Signs Temp Pulse Pulse Resp BP Pulse Ox Pulse Ox 07/26/22 08:00 60 07/26/22 08:00 07/26/22 08:00 97 07/26/22 08:30 37.1 C 76 17 110/64 98 07/26/22 04:14 36.6 C 70 16 103/65 96 O2 Del Method O2 Del Method 07/26/22 08:00 07/26/22 08:00 Room Air 07/26/22 08:00 Room Air 07/26/22 08:30 Room Air 07/26/22 04:14 Room Air Laboratory Results 07/26/22 05:42 07/26/22 05:42 PG Care Time/CCT Total # of Minutes Spent Total Time Spent with Patient: Total time spent is greater than 50% in coordination of care (as documented) at patient's floor/unit and/or counseling patient: Coding Level of Care Code 44025 Subseq Hosp Care Lvl 2 Diagnoses Spontaneous pneumothorax J93.83 Shortness of breath R06.02 Chest tightness R07.89
--- NOTE | 2022-07-26 15:50 | XRay Report ---
XR chest 1V portable HISTORY: 21 years-old Male f/u off suction left-sided pneumothorax COMPARISON: Chest radiograph of same day at 6:59 AM TECHNIQUE: AP view of the chest FINDINGS: Increased size of the left apical pneumothorax with pleural separation now measuring up to approximat torri 4.8 cm, previously 2.2 cm. Stable positioning of the left-sided pleural catheter. Cardiomediastin al and hilar silhouettes are within normal limits. The right lung is clear. No pleural effusion or ai rspace consolidation. The bones appear grossly intact. IMPRESSION: Stable positioning of the left-sided pleural catheter with mildly increased size of the l eft apical pneumothorax. ACT 112: Negative or not required by law. The above report was generated using voice recognition software. It may contain grammatical, syntax o r spelling errors. Electronically signed by: Galen Clay M.D. 07/26/2022 3:48 PM
--- NOTE | 2022-07-26 15:53 | Communication Note ---
Date of Service: July 26, 2022 Pulmonary addendum: Chest x-ray while the patient was on waterseal showed worsening of left-sided pneumothorax. I went at bedside and put it back to suction. There was a leak appreciated for approximately 59.20 seconds and then it stopped. Given the patient has been requiring continuous suction for more than 48 hours. I think he should be evaluated for possible VATS procedure. Patient and patient's family were made aware that we will try to get in touch with a CT surgeon. The preferred [place]. Dr Franco's made aware. Please note the above document was generated using voice recognition software. It may contain grammatical, syntax or spelling errors.Any formal questions or concerns about the content, text or information contained within the body of this dictation should be directly addressed to the provider for clarification. Coding Level of Care Code None
[2022-07-27] MEDS: ACETAMINOPHEN 1,000 MG/100 ML VIAL IV SCH (03:17)
[2022-07-27] MEDS: HYDROmorphone INJ 0.5 MG/0.5 ML SYR IV PRN ×2 (07:31→20:02)
--- NOTE | 2022-07-27 07:51 | XRay Report ---
XR chest 1V portable HISTORY: Left-sided pneumothorax. Follow-up. COMPARISON: Chest 07/26/2022. FINDINGS: The left chest tube is unchanged in position. Slight decrease in size in the small to moder ate left apical pneumothorax. This now demonstrates a maximal pleural gap of 3.2 cm. No mediastinal s hift. No right-sided pneumothorax. No pleural effusions. The lungs are clear. The heart is normal in size. Mild S-shaped scoliosis of the thoracic spine. IMPRESSION: Slight decrease in size in the small to moderate left pneumothorax. The left-sided chest tube remains unchanged in position. ACT 112: Negative or not required by law. Electronically signed by: Tomas Kay M.D. 07/27/2022 7:50 AM
[2022-07-27] MEDS: DOCUSATE SODIUM/SENNA 50/8.6MG TAB PO SCH (08:44)
--- NOTE | 2022-07-27 08:51 | Pulmonology Progress Note ---
Date of Service July 27, 2022 Assessment & Plan (1) Spontaneous pneumothorax: (2) Shortness of breath: (3) Chest tightness: Plan Chest x-ray 07/23/2022 personally reviewed: Left-sided moderate pneumothorax with 4.9 cm apical separation, 1.2 cm left hilar cell separation, mild left- sided mediastinal shift CT chest 07/24/2022 personally reviewed: Bilateral apical blebs appreciated, small left-sided pneumothorax No mediastinal lymphadenopathy -- Left-sided spontaneous pneumothorax Initial presentation 07/19/2022, was sent home with conservative management Worsening of the left-sided pneumothorax on the recent chest x-ray S/p pigtail catheter 07/23/2022 Plan: Chest x-ray from today showed improvement compared to the chest x-ray when the patient's tube was to waterseal. On bedside examination when the patient sat up he did have intermittent air leak +1. He has been accepted at [place]. Awaiting bed. Continue with chest tube suction at -20 Case was discussed with RN at bedside Please note the above document was generated using voice recognition software. It may contain grammatical, syntax or spelling errors.Any formal questions or concerns about the content, text or information contained within the body of this dictation should be directly addressed to the provider for clarification. Admission and Anticipated Discharge Date Admission Date: July 23, 2022 Subjective Patient seen and examined at bedside. No acute distress, no adverse events overnight. Mild chest discomfort at the site of the chest tube still persist. Denies any headache, no nausea vomiting Shortness of breath has improved. No significant chest tightness Review of Systems Review of Systems: All systems reviewed & are unremarkable except as noted in Subjective Physical Exam Physical Exam: Constitutional: No acute distress HEENT: EOMI, PERRLA, no crepitus Respiratory system: Decreased air entry in the left side, no wheeze, no rhonchi, no crackles CVS: S1-S2 positive, no murmurs or gallops Abdomen: Soft, nontender, nondistended, positive bowel sounds x4 Extremities: +2 pulses bilaterally radialis/ dorsalis pedis, no cyanosis, no edema Neuro: Awake alert oriented x3 Psych: Normal mood and affect G/U: No Rouse Skin: no rashes, warm and dry Lymphatic: no cervical or axillary lymphadenopathy Results & Data Results & Data ([facility]) Vital Signs (Past 12 Hours) Vital Signs Temp Pulse Pulse Resp BP Pulse Ox O2 Del Method 07/27/22 08:29 36.9 C 76 17 123/76 97 Room Air 07/27/22 03:24 36.7 C 62 16 119/73 98 Room Air 07/26/22 23:35 36.6 C 93 H 18 122/73 99 Room Air 07/26/22 23:32 63 Laboratory Results 07/26/22 05:42 07/26/22 05:42 PG Care Time/CCT Total # of Minutes Spent Total Time Spent with Patient: Total time spent is greater than 50% in coordination of care (as documented) at patient's floor/unit and/or counseling patient: Coding Level of Care Code 40078 Subseq Hosp Care Lvl 2 Diagnoses Spontaneous pneumothorax J93.83 Shortness of breath R06.02 Chest tightness R07.89
[2022-07-27] MEDS: KETOROLAC 30 MG/ML VIAL IV PRN ×2 (10:19→16:02)
--- NOTE | 2022-07-27 13:04 | Hospitalist Progress Note ---
Date of Service July 27, 2022 Assessment & Plan (1) Spontaneous pneumothorax: Plan: Presented on 07/19 for initial spontaneous pneumothorax, improved with nonrebreather and was discharged home. Had decreased breath sounds and had chest x-ray that showed left apical pneumothorax increased compared to 07/19. Pulmonology consulted and appreciate recommendations; chest tube to suction placed. Unfortunately CXR while the patient was on waterseal showed worsening of left-sided pneumothorax, therefore placed back to suction. Given the patient has been requiring continuous suction for more than 48 hours, will be transferred to [facility] for possible VATS once bed available. Pain control with Tylenol 1000 mg every 8 hours scheduled, with Toradol and Dilaudid as needed for severe or breakthrough pain. Telemetry for cardiac monitoring. (2) Chest tightness: Plan: Secondary to #1, still with some pain but mostly at the site of the tube rather than the chest tightness that he presented with. (3) Shortness of breath: Plan: Secondary to #1, resolved (4) Constipation: Plan: Senokot daily for constipation due to opiate pain medications. Had BM 07/26. Plan Full code Regular diet Low risk of DVT, ambulate on demand Telemetry status Accepted for transfer to [facility] with accepting physician Dr. Arcadio Velasco. Awaiting bed and transport. Admission and Anticipated Discharge Date Admission Date: July 23, 2022 Subjective No overnight events, pain in left chest relieved with PRN pain medications, otherwise no complaints. Awaiting transfer. Review of Systems Review of Systems: All systems reviewed & are unremarkable except as noted in Subjective Physical Exam Physical Exam: chest tube in place to continuous suction Constitutional: WD/WN, vitals as above Respiratory: normal respiratory effort, decreased breath sounds left side Cardiovascular: RRR, no murmur, no edema Gastrointestinal (Abdomen): normal bowel sounds, soft, nontender, no hepato splenomegaly Skin: no rashes, warm and dry Psychiatric: A+Ox3, euthymic affect Results & Data Results & Data ([facility]) Vital Signs (Past 12 Hours) Vital Signs Temp Pulse Pulse Resp BP Pulse Ox Pulse Ox 07/27/22 12:19 36.9 C 68 17 103/63 98 07/27/22 09:00 97 07/27/22 08:00 58 L 07/27/22 08:00 07/27/22 08:29 36.9 C 76 17 123/76 97 07/27/22 03:24 36.7 C 62 16 119/73 98 O2 Del Method O2 Del Method 07/27/22 12:19 Room Air 07/27/22 09:00 Room Air 07/27/22 08:00 07/27/22 08:00 Room Air 07/27/22 08:29 Room Air 07/27/22 03:24 Room Air PG Care Time/CCT Total # of Minutes Spent Total Time Spent with Patient: Total time spent is greater than 50% in coordination of care (as documented) at patient's floor/unit and/or counseling patient: Coding Level of Care Code 71044 Subseq Hosp Care Lvl 2 Diagnoses Spontaneous pneumothorax J93.83 Chest tightness R07.89 Shortness of breath R06.02 Constipation K59.00
--- NOTE | 2022-07-27 18:50 | Discharge Summary ---
Discharge Summary Date of Service July 27, 2022 Admission HPI Per Admitting Provider Lele is a 21-year-old male presents for management of a left apical pneumothorax Patient was seen by his primary care provider this morning for follow-up of a spontaneous pneumothorax on 07/19/2022. At that time he presented to the emergency department with the onset of chest pain and was found to have a 3 cm apical pneumothorax, was treated with 100% oxygen nonrebreather with 10% improvement, was discharged home with follow-up. Patient presented for follow- up to his PCP with ear pain and a cough, had a repeat CXR for respiratory symptoms for decreased breath sounds on PE and was found to have a worsened pneumothorax to 4.9 from 3.1 cm left apex. Was referred to the hospital for chest tube management. Initially with some sinus congestions and postnasal drip, at time bedside he reports he does not have a runny nose/cough/sinus congestion/sore throat. No congestion No fevers chills sweats Pain L lateral chest @ tube site. 05/04, slightly improved following Tylenol and morphine. 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, 2 semesters left. Medical History: Reviewed Medications: Reviewed Surgical History: Reviewed Allergies: Reviewed Social History: No tobaocco or etoh Code Status: Full Code. Admission Exam Per Admitting Provider General: A&Ox3. NAD. Cooperative. HEENT: Atraumatic, normocephalic. Pulm: CTAB A&P. -wheezes, -rales, -rhonchi. Symmetrical chest rise. No increased work of breathing. No respiratory distress. Cardiac: RRR, -mrg. Radial pulses intact and symmetrical. Abdominal: Nontender, nondistended, soft. BS present. Principal Dx & Hospital Course #1 = Principal Diagnosis (1) Spontaneous pneumothorax: Presented on 07/19 for initial spontaneous pneumothorax, improved with nonrebreather and was discharged home. Had decreased breath sounds and had chest x-ray that showed left apical pneumothorax increased compared to 07/19. Pulmonology consulted and appreciate recommendations; chest tube to suction placed. Unfortunately CXR while the patient was on waterseal showed worsening of left-sided pneumothorax, therefore placed back to suction. Given the patient has been requiring continuous suction for more than 48 hours, will be transferred to [facility] for possible VATS once bed available. Pain control with Tylenol 1000 mg every 8 hours scheduled, with Toradol and Dilaudid as needed for severe or breakthrough pain. Telemetry for cardiac monitoring. (2) Chest tightness: Secondary to #1, still with some pain but mostly at the site of the tube rather than the chest tightness that he presented with. (3) Shortness of breath: Secondary to #1, resolved (4) Constipation: Senokot daily for constipation due to opiate pain medications. Had BM 07/26. Plan Full code Regular diet Low risk of DVT, ambulate on demand Telemetry status Accepted for transfer to [facility] with accepting physician Dr. Arcadio Velasco. Awaiting bed and transport. Discharge Exam Constitutional WD/WN, vitals as above Respiratory Decreased breath sounds left side Saturating to 97% on room air No labored breathing or accessory muscle use No wheezes or crackles Updated Medication List Medication Instructions Recorded Confirmed Type No Known Home Medications 07/23/22 07/23/22 History Hospital Stay Data Consultations 07/23/22 16:23 Consult Pulmonology Stat ED Decision to Admit Stat 07/27/22 17:35 Burn CD for patient Stat Diagnostic Imagining Performed 07/24/22 07:30 CT chest diagnostic wo con Urgent Pending Results Patient Have Any Pending Studies at Discharge: No Discharge Instructions Given to Patient (Per Discharging Provider) Presented on 07/19 for initial spontaneous pneumothorax, improved with nonrebreather and was discharged home. Few days later had decreased breath sounds in outpatient office and had chest x- ray that showed left apical pneumothorax increased compared to 07/19. Admitted for management. Pulmonology consulted and appreciate recommendations; chest tube to suction placed. Unfortunately CXR while the patient was on waterseal showed worsening of left-sided pneumothorax, therefore placed back to suction. Given the patient has been requiring continuous suction for more than 48 hours, will be transferred to [facility] for possible VATS once bed available. Pain control with Tylenol 1000 mg every 8 hours scheduled, with Toradol and Dilaudid as needed for severe or breakthrough pain. Telemetry for cardiac monitoring. Total Time Total Time Spent Total Time Spent (In Minutes): 40 minutes Coding Level of Care Code D/C DAY MANAGEMENT >30 MINS Diagnoses Spontaneous pneumothorax J93.83 Chest tightness R07.89 Shortness of breath R06.02 Constipation K59.00
== END 2022-07-27 21:05 | disposition short-term general hospital (02) | DRG 201 ==
LOC: ED 14:09 → SUATTDRO 17:38 → 4W 17:38